=== PATIENT | male | born 1990 | race Caucasian/White ===

== ENCOUNTER 2018-04-23 23:12 | Emergency (ER) | payer OTHER ==
[2018-04-23 23:19] VITALS: BP 128/76
--- NOTE | 2018-04-23 23:27 | EDPHY ---
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 No paresthesia. No discoloration. PHYSICAL EXAM (Prior to examination, patient consented to physical exam, hands were washed and my usual and customary physical exam procedures followed) 1) GENERAL: Well-developed, well-nourished, alert and oriented. Appears anxious 2) HEAD: Normocephalic 3) HEENT: sclera anicteric 4) LUNGS: Breathing comfortably. 5) SKIN: Left 5th digit distal phalanx 1 cm well delineated linear laceration, superficial . No signs of infection. Negative kanavel. no foreign body 6) MUSCULOSKELETAL: FDP FDS intact 7) NEUROLOGIC: Full sensation two-point discrimination intact (KyreeYusef Do) Constitutional: Initial Vital Signs Temperature (C) 37.1 C 04/23/18 23:15 Heart Rate 115 H 04/23/18 23:15 Respiratory Rate 16 04/23/18 23:15 Blood Pressure 128/76 H 04/23/18 23:15 O2 Sat (%) 96 04/23/18 23:15 O2 Delivery Mode Room Air Allergies/Adverse Reactions: No Known Allergies Allergy (Unverified 04/23/18 23:19) Home Medications: Medication Instructions Recorded NK [No Known Home Meds] 04/23/18 MDM/Departure - MDM Procedures: Procedure: Laceration repair. I explained the indications, risks and benefits for both laceration repair and anesthetic administration. Verbal consent was obtained from the patient . The laceration on the left pinky finger was anesthetized using 0.5% bupivicaine without epinephrine digital nerve block. After anesthetic administered the patient was observed for a period of time and had no apparent adverse effects. The wound was cleaned, prepped, draped in normal sterile fashion and explored to its base. No foreign body seen, no foreign bodies palpated. There were no deep structures involved. No tendon injury was identified. The wound was repaired with 3 simple interrupted 5 O Prolene sutures. The wound repair was simple. The procedure was performed by myself. Patient has been informed that scarring will occur, although efforts have been made to minimize this. (Yusef Adorno) Medications Given: Discontinued Medications Diphtheria/Tetanus/Acell Pertussis (Boostrix) 0.5 ml IM .ONCE ONE Stop: 04/23/18 23:30 Last Admin: 04/23/18 23:31 Dose: 0.5 ml ED Course/Re-evaluation: Care of patient under supervision of secondary supervising physician Dr Alva . (Yusef Adorno) PHYSICIAN DOCUMENTATION: The patient was evaluated and managed by the Physician Rail Transit Operator. My co- signature indicates that I have reviewed this chart and I agree with the findings and plan of care as documented. I am the secondary supervising physician. (Deedee Alva) - Depart Disposition: Home, Routine, Self-Care Clinical Impression: Laceration of left little finger Qualifiers: Encounter type: initial encounter Damage to nail status: without damage Foreign body presence: without foreign body Qualified Code(s): S61.217A - Laceration without foreign body of left little finger without damage to nail, initial encounter Condition: Good Instructions: Care For Your Stitches (ED), Laceration (ED) Additional Instructions: Return to the ER if you develop redness, swelling, discharge, warmth to the wound, red streaks going up your arm, or any other symptoms that concern you. Stand Alone Forms: Work Comp Follow Up Referrals: Return, to the ER in 10 days for suture removal [Other] - 05/03/18
[2018-04-23] MEDS ORDERED: TDAP ADULT 0.5 ML INJ (BOOSTRIX) IM ONE (23:29)
== END 2018-04-24 00:04 | disposition home or self-care (01) ==
PROC: 0HQGXZZ Repair Left Hand Skin, External Approach (ICD-10-PCS; principal; 2018-04-23)
DX: S61.217A Laceration without foreign body of left little finger without damage to nail, initial encounter (principal); Z23 Encounter for immunization; W29.0XXA Contact with powered kitchen appliance, initial encounter; Y99.0 Civilian activity done for income or pay; Y92.9 Unspecified place or not applicable; Y93.9 Activity, unspecified